=== PATIENT | female | born 1990 | race Caucasian/White ===

== ENCOUNTER 2016-06-22 08:26 | Emergency (ER) | payer MEDICAID, OTHER ==
[~2016-06-22] VITALS: Wt 78.5 kg
[~2016-06-22 08:26] MED LIST: ACET500C5 PO; CEPH-443 PO
[2016-06-22 10:10] LABS: ADD UMIC NO; URINE BILIRUBIN (Dip) NEGATIVE (NEGATIVE); URINE BLOOD (Dip) NEGATIVE (NEGATIVE); URINE COLOR LT. YELLOW (YELLOW); URINE GLUCOSE (Dip) NEGATIVE (NEGATIVE); URINE KETONES (Dip) NEGATIVE (NEGATIVE); URINE LEUKOCYTE ESTERASE (Dip) NEGATIVE (NEGATIVE); URINE NITRITE (Dip) NEGATIVE (NEGATIVE); URINE TOTAL PROTEIN (Dip) NEGATIVE (NEGATIVE); URINE UROBILINOGEN (Dip) 0.2 E.U./dL (0.1-1.0)
--- NOTE | 2016-06-22 11:01 | RADRPT ---
PROCEDURE: CT brain without contrast CLINICAL INDICATION: Headaches TECHNIQUE: CT of the brain without contrast was performed on a multidetector CT scanner, with multi planar reformats. One or more of the following dose reduction techniques were used: Automated expos ure control, adjustment in mA and / or kV according to patient size, use of iterative reconstructive technique. CTDIvol = 39 mGy; DLP = 555 mGy-cm. COMPARISON: None available FINDINGS: No acute intracranial hemorrhage is identified. No extra-axial fluid collection is seen. There is no mass effect. No midline shift is identified. Ventricles and sulci are within normal limits for size and configuration. The density of the brain is within normal limits. Mijares-white differentiation is preserved. Osseous structures are unremarkable. Mastoid air cells and imaged paranasal sinuses grossly clear. IMPRESSION: Unremarkable noncontrast CT of the brain. RPTAT: VV .Juan Mohamud MD, Date Time Electronically viewed and signed by .Juan Mohamud MD, MD on 06/22/2016 11:00 .O/
[2016-06-22] MEDS ORDERED: KETOROLAC 60 MG INJ IM STA (11:37)
[2016-06-22] MEDS ORDERED: IBUP-1542 PO (11:39)
[2016-06-22 12:08] VITALS: BP 120/75; PULSE 70; RESP 18
--- NOTE | 2016-06-22 13:30 | ERD ---
ER Documentation Chief Complaint Date/Time DATE: 06/22/16 TIME: 13:21 Chief Complaint non traumatic headache for the past week. noneuro def. no fever or cough HPI 25-year-old female with no significant past medical history presents to the ED complaining of posterior neck and headache that started constantly since 1 month ago. Reports that it was a gradual onset. States that the headache is worse when she has sexual intercourse. States that whenever she has an orgasm, it feels like a sharp pain that is a 10 out of 10. States that she has pain predominantly in the right side of her head as well as left pressure around her eyes. States that she is followed up with her primary care physician and has taken every drue-non-vsbowhi medication and has not alleviated her symptoms. Patient was sent here to the ED to for further evaluation with a CT of the brain without contrast. Patient also states that she has lumps in her vaginal canal that she has noticed she was showering and is currently taking metronidazole. She states that she is unsure what the doctor prescribed the medication for. Denies any vaginal discharge, vaginal pruritus, or vaginal bleeding. Denies any abdominal pain, nausea, vomiting, weakness, dizziness, numbness or tingling, chest pain, shortness of breath, lacrimation, rhinorrhea. ROS All systems reviewed and are negative except as per history of present illness. Medications Home Meds Active Scripts Ibuprofen* (Motrin*) 600 Mg Tab, 600 MG PO Q6, #30 TAB Prov:SALLIE CATALAN PA-C 06/22/16 Cephalexin* (Keflex*) 500 Mg Capsule, 500 MG PO QID for 7 Days, CAP Prov:DEVANTE BUTTERFIELD NP 02/18/16 Acetaminophen* (Tylophen*) 500 Mg Capsule, 1 CAP PO Q6H Y for PAIN AND OR ELEVATED TEMP, #20 CAP Prov:DEVANTE BUTTERFIELD NP 02/18/16 Reported Medications [none] Unknown Strength No Conflict Check 02/17/16 Allergies Allergies: Coded Allergies: No Known Allergy (Unverified , 06/22/16) PMhx/Soc Medical and Surgical Hx: pt denies Medical Hx, pt denies Surgical Hx History of Surgery: No Anesthesia Reaction: No Hx Neurological Disorder: No Hx Respiratory Disorders: No Hx Cardiac Disorders: No Hx Psychiatric Problems: No Hx Miscellaneous Medical Probl: No Hx Alcohol Use: No Hx Substance Use: No Hx Tobacco Use: No Smoking Status: Never smoker Physical Exam Vitals Vital Signs Date Time Temp Pulse Resp B/P Pulse Ox O2 Delivery O2 Flow Rate FiO2 06/22/16 12:08 70 18 120/75 99 Room Air 06/22/16 08:29 98.5 70 20 112/70 100 Physical Exam Const: Lng-ugu-fibxbcnux, well-nourished. In no acute distress. Head: Atraumatic, normocephalic Eyes: Normal Conjunctiva without injection. No purulent discharge. PERRLA. EOMI ENT: Normal external ear. Ear canal without erythema. Tympanic membrane pearly mijares without effusion or bulging. Nasal canal clear with normal turbinates. Moist oropharynx without tonsillar exudates. Non-erythematous pharynx. Uvula midline. No drooling. No trismus. Neck: No cervical midline tenderness. Full range of motion. No meningismus. No cervical lymphadenopathy. No JVD. Resp: Clear to auscultation bilaterally. No wheezing, rhonchi, rales, or crackles. No accessory muscle use. No retractions. Cardio: Regular rate and rhythm. No murmurs, rubs or gallops. Abd: Soft, non tender, non distended. Normal bowel sounds. No palpable masses. No rebound tenderness. No guarding. Negative McBurney's Point. Negative Tsang's Sign. Skin: Normal skin turgor. No petechiae or rashes Back: No midline tenderness. No CVA tenderness. Ext: No cyanosis, or edema. Distal pulses intact bilaterally. Neur: Awake and alert. Normal gait. Normal coordination. Cranial Nerves II- VII intact. Normal finger to nose. Muscle strength 5/5. Sensation intact. Psych: Normal Mood and Affect Results 24 hrs Laboratory Tests Test 06/22/16 09:50 Urine Bilirubin NEGATIVE Urine Clarity CLEAR Urine Color LT. YELLOW Urine Glucose NEGATIVE% Urine Hemoglobin NEGATIVE Urine Ketones NEGATIVE Urine Leukocyte Esterase NEGATIVE Urine Nitrite NEGATIVE Urine Specific [place] 1.010 Urine Total Protein NEGATIVE Urine Urobilinogen 0.2 E.U./dL Urine pH 7.0 Current Medications Medications (Trade) Dose Ordered Sig/Al Route PRN Reason Start Time Stop Time Status Last Admin Dose Admin Ketorolac Tromethamine (Toradol) 60 mg ONCE STAT IM 06/22/16 11:37 06/22/16 11:39 DC 06/22/16 11:43 Procedures/MDM This is a 25-year-old female with no significant past medical history presents the ED complaining of a headache as well as having a bump in her vaginal canal. States that it is slightly painful but denies any pruritus. Patient is afebrile and nontoxic-appearing. Patient gave consent to do a pelvic exam. The risks of radiation was discussed with the patient at this time of the CT of the brain without contrast was ordered, she agreed that she still wanted to get the CT at this time. Pelvic Exam: Outside Cutter Hand present Abdomen: [Nontender] External Genitalia: [Normal Skin] Speculum: [Normal vaginal mucosa, normal cervical discharge] Bimanual: [No adnexal masses or tenderness, No CMT] PROCEDURE: CT brain without contrast CLINICAL INDICATION: Headaches TECHNIQUE: CT of the brain without contrast was performed on a multidetector CT scanner, with multiplanar reformats. One or more of the following dose reduction techniques were used: Automated exposure control, adjustment in mA and / or kV according to patient size, use of iterative reconstructive technique. CTDIvol = 39 mGy; DLP = 555 mGy-cm. COMPARISON: None available FINDINGS: No acute intracranial hemorrhage is identified. No extra-axial fluid collection is seen. There is no mass effect. No midline shift is identified. Ventricles and sulci are within normal limits for size and configuration. The density of the brain is within normal limits. Mijares-white differentiation is preserved. Osseous structures are unremarkable. Mastoid air cells and imaged paranasal sinuses grossly clear. IMPRESSION: Unremarkable noncontrast CT of the brain. Patient symptoms could likely be due to post choroidal headaches versus tension headaches. Patient's pain is improved after Toradol here in the ED. Low suspicion for migraines, cluster headaches, acute myocardial infarction, pneumothorax, pneumonia, cardiac tamponade, pulmonary embolism, pleural effusion , AAA, aortic dissection, Boerhaave's syndrome, cardiac dysrhythmias,meningitis , intracranial bleed, seizure, stroke, TIA or other emergent conditions. Urinalysis is negative for any leukocyte esterase, hematuria, nitrite. Negative noted. Pelvic exam was within normal limits. No lumps or bumps noted. Low suspicion for symptomatic anemia, ectopic , sepsis, PID, appendicitis, ovarian torsion, tubo-ovarian abscess, surgical abdomen, or other emergent conditions. Patient was educated that there is a risk for threatened . Patient to follow up with [facility] in 2 days for further evaluation and treatment. Patient is to return sooner to the ED for any worsening symptoms. Patient's questions were answered. Patient understood and agreed with discharge plan. Discharge medications: Ibuprofen Follow up with primary care physician in 1-2 days. Instructed patient to return to the ED sooner for any worsening symptoms. Patient's questions were answered. Patient understood and agreed with discharge plan. Patient discharged stable. Departure Diagnosis: Primary Impression: Headache Headache type: unspecified Headache chronicity pattern: unspecified pattern Intractability: not intractable Qualified Code: R51 - Nonintractable headache, unspecified chronicity pattern, unspecified headache type Additional Impression: Vaginal discomfort Condition: Stable Patient Instructions: Self-Care for Headaches, Headache, Unspecified Referrals: [facility] YOU HAVE RECEIVED A MEDICAL SCREENING EXAM AND THE RESULTS INDICATE THAT YOU DO NOT HAVE A CONDITION THAT REQUIRES URGENT TREATMENT IN THE EMERGENCY DEPARTMENT. FURTHER EVALUATION AND TREATMENT OF YOUR CONDITION CAN WAIT UNTIL YOU ARE SEEN IN YOUR DOCTORS OFFICE WITHIN THE NEXT 1-2 DAYS. IT IS YOUR RESPONSIBILITY TO MAKE AN APPOINTMENT FOR FOLOW-UP CARE. IF YOU HAVE A PRIMARY DOCTOR --you should call your primary doctor and schedule an appointment IF YOU DO NOT HAVE A PRIMARY DOCTOR YOU CAN CALL OUR PHYSICIAN REFERRAL HOTLINE AT IF YOU CAN NOT AFFORD TO SEE A PHYSICIAN YOU CAN CHOSE FROM THE FOLLOWING [facility] [address] [facility]. [facility] [address] [facility]. [facility] [address] [facility]. [facility] [address] [facility]. [facility] [address] [facility]. [facility]. [address] [facility] YOU HAVE RECEIVED A MEDICAL SCREENING EXAM AND THE RESULTS INDICATE THAT YOU DO NOT HAVE A CONDITION THAT REQUIRES URGENT TREATMENT IN THE EMERGENCY DEPARTMENT. FURTHER EVALUATION AND TREATMENT OF YOUR CONDITION CAN WAIT UNTIL YOU ARE SEEN IN YOUR DOCTORS OFFICE WITHIN THE NEXT 1-2 DAYS. IT IS YOUR RESPONSIBILITY TO MAKE AN APPOINTMENT FOR FOLOW-UP CARE. IF YOU HAVE A PRIMARY DOCTOR --you should call your primary doctor and schedule and appointment IF YOU DO NOT HAVE A PRIMARY DOCTOR YOU CAN CALL OUR PHYSICIAN REFERRAL HOTLINE AT . IF YOU CAN NOT AFFORD TO SEE A PHYSICIAN YOU CAN CHOSE FROM THE FOLLOWING [facility] INSTITUTIONS: [facility] [address] [place] [address] [facility] [address] [place] [address] [facility] [address] [place] [address] [facility] URGENT CARE/SPECIALTIES [facility] [place] [address] [facility] [address] [place] [address] OFFICE FAX , [facility] [address] [place] [address] [address] [address] [place] [address] [address] [facility] [address] [facility] [address] [address] [place] [address] [facility] [address] [place] [address] [address] [facility] [address] [address] [address] [facility] [address] [address] [address] [facility] [address], [facility] [address] [address] [address] [place] [address] [facility] Hours: 8:00 am - 5:00 pm Additional Instructions: FOLLOW UP WITH YOUR PRIMARY CARE PHYSICIAN TOMORROW for a referral to [facility] and for your headache.Return to this facility if you are not improving as expected. SALLIE CATALAN PA-C Jun 22, 2016 13:30
== END 2016-06-22 12:09 | disposition home or self-care (01) ==
LOC: FTE 08:26
DX: R51 Headache (principal); N89.8 Other specified noninflammatory disorders of vagina
CPT/HCPCS: 70450; 81003; 87591; 96372; J1885; Z7502

== ENCOUNTER 2017-01-16 10:35 | Emergency (ER) | payer OTHER ==
[~2017-01-16] VITALS: Ht 152.4 cm; Wt 81.0 kg
[~2017-01-16 10:35] MED LIST changes: +IBUP-1542 PO
[2017-01-16 10:38] VITALS: Ht 152.4 cm; Wt 81.0 kg
--- NOTE | 2017-01-16 11:53 | ERD ---
ER Documentation Chief Complaint Date/Time DATE: 01/16/17 TIME: 11:51 Chief Complaint pelvic pain x 2 mos HPI She is a 26-year-old female who is , presents to the ED with bilateral pelvic pain. States that the pain comes and goes sometimes on the right and sometimes on the left. Denies fever or chills. Denies abdominal pain, nausea, vomiting or diarrhea. Patient states that her last normal menstrual period was November 202016. She states that she has normal menstrual cycles every month. She has done multiple tests at home and is unsure if she is however the test have been negative. Denies vaginal bleeding , dysuria urgency. No other complaints. ROS All systems reviewed and are negative except as per history of present illness. Medications Home Meds Active Scripts Ibuprofen* (Motrin*) 600 Mg Tab, 600 MG PO Q6, #30 TAB Prov:KALI PARKER PA-C 01/16/17 Ibuprofen* (Motrin*) 600 Mg Tab, 600 MG PO Q6, #30 TAB Prov:SALLIE CATALAN PA-C 06/22/16 Cephalexin* (Keflex*) 500 Mg Capsule, 500 MG PO QID for 7 Days, CAP Prov:DEVANTE BUTTERFIELD NP 02/18/16 Acetaminophen* (Tylophen*) 500 Mg Capsule, 1 CAP PO Q6H Y for PAIN AND OR ELEVATED TEMP, #20 CAP Prov:DEVANTE BUTTERFIELD NP 02/18/16 Reported Medications [none] Unknown Strength No Conflict Check 02/17/16 Allergies Allergies: Coded Allergies: No Known Allergy (Unverified , 06/22/16) PMhx/Soc Medical and Surgical Hx: pt denies Medical Hx, pt denies Surgical Hx History of Surgery: No Anesthesia Reaction: No Hx Neurological Disorder: No Hx Respiratory Disorders: No Hx Cardiac Disorders: No Hx Psychiatric Problems: No Hx Miscellaneous Medical Probl: No Hx Alcohol Use: No Hx Substance Use: No Hx Tobacco Use: No Smoking Status: Never smoker FmHx Family History: No coronary disease, No diabetes, No other Physical Exam Vitals Vital Signs Date Time Temp Pulse Resp B/P Pulse Ox O2 Delivery O2 Flow Rate FiO2 01/16/17 10:38 98.5 90 18 112/66 99 Physical Exam GENERAL: Well-developed, well-nourished female. Appears in no acute distress. HEAD: Normocephalic, atraumatic. EYES: Pupils are equally reactive bilaterally. EOMs grossly intact. No conjunctival erythema. ENT: Moist mucous membranes. No uvula deviation. No kissing tonsils. No exudates. NECK: Supple. No lymphadenopathy or thyromegaly. No meningismus. negative kernig. negative brudinski. LUNG: Clear to auscultation bilaterally. No rhonchi, wheezing, rales or coarse breath sounds. HEART: Regular rate and rhythm. No murmurs, rubs or gallops. ABDOMEN: No scars, ecchymosis or rashes noted. Soft, nontender, and nondistended. Positive bowel sounds in all four quadrants. No rebound tenderness , no guarding. (-) McBurneys point tenderness. No CVA tenderness. slight right and left sided pelvic pain. BACK: No midline tenderness. Extremities: Equal pulses bilaterally. No peripheral clubbing, cyanosis or edema. No unilateral leg swelling. NEUROLOGIC: Alert and oriented. Moving all four extremities. 5/5 strength in all extremities. Normal speech. Steady gait. SKIN: Normal color. Warm and dry. No rashes or lesions. Capillary refill < 2 seconds Results 24 hrs Laboratory Tests Test 01/16/17 11:13 01/16/17 11:33 Urine Test NEGATIVE Urine Color STRAW Urine Clarity CLEAR Urine pH 7.0 Urine Specific [place] 1.006 Urine Ketones NEGATIVEmg/dL Urine Nitrite NEGATIVEmg/dL Urine Bilirubin NEGATIVEmg/dL Urine Urobilinogen NEGATIVEmg/dL Urine Leukocyte Esterase NEGATIVELeu/ul Urine Hemoglobin NEGATIVEmg/dL Urine Glucose NEGATIVEmg/dL Urine Total Protein NEGATIVEmg/dl Procedures/MDM ER COURSE: I kept the patient and/or family informed of laboratory and diagnostic imaging results throughout the emergency room course. MEDICAL DECISION MAKING: This is a 26-year-old female who presents with pelvic pain on and off 2 months. Vital signs were reviewed. Patient is afebrile. Patient is not hypoxic. Is not toxic or ill-appearing. Ultrasound as of by radiologist is unremarkable. Negative test and urinalysis negative for nitrites, leukocytes or hematuria. Patient has pelvic pain of unknown etiology. Patient to follow-up with sock drier. Low suspicion for ovarian torsion, PID, tuboovarian abscess, ectopic , bowel obstruction, pyelonephritis, UTI, appendicitis , cervicitis, septic , molar , HELLP syndrome, preeclampsia, eclampsia, placenta previa, placenta abruptia. DISCHARGE: At this time, patient is stable for discharge and outpatient management with no new complaints during the ER course. Patient was sent home with ibuprofen, copy of imaging and laboratory studies and to follow-up with brennen/electric organ assembler. Patient will be discharged home with instructions to recheck for new or worsening symptoms such as fever, nausea, weakness, LOC and to follow up with primary care in the next 1-2 days. Patient was advised to return to the ER for any new or worsening symptoms. Plan was discussed and patient and/or family understands and agrees. Home instructions were given. Departure Diagnosis: Primary Impression: Pelvic pain Condition: Stable KALI PARKER PA-C Jan 16, 2017 11:53
[2017-01-16 12:09] LABS: ADD UMIC NO; UR ASCORBIC ACID NEGATIVE (NEGATIVE); UR BILIRUBIN (Dip) NEGATIVE (NEGATIVE); UR BLOOD (Dip) NEGATIVE (NEGATIVE); UR CLARITY CLEAR (CLEAR); UR COLOR STRAW (YELLOW); UR GLUCOSE (Dip) NEGATIVE (NEGATIVE); UR KETONES (Dip) NEGATIVE (NEGATIVE); UR LEUKOCYTE ESTERASE (Dip) NEGATIVE Leu/ul (NEGATIVE); UR NITRITE (Dip) NEGATIVE (NEGATIVE); UR SPECIFIC GRAVITY (Dip) 1.006 (1.003-1.030); UR TOTAL PROTEIN (Dip) NEGATIVE (NEGATIVE); UR UROBILINOGEN (Dip) NEGATIVE (NEGATIVE)
--- NOTE | 2017-01-16 12:17 | RADRPT ---
PROCEDURE: US Pelvis. CLINICAL INDICATION: Pelvic pain TECHNIQUE: Multiple sonographic images of the pelvis were obtained utilizing a transabdominal and endovaginal technique. The images were reviewed on a PACS workstation. COMPARISON: None available FINDINGS: Uterus: Normal in size, contour and echogenicity with no evidence for myometrial masses. Size is est imated at 8.5 x 3.4 x 5.9 cm. Cervix: No abnormalities of significance are seen. Endometrium: Normal in thickness; 7.9 mm. Right ovary / adnexa: Normal in size estimated at 3.1 x 2.4 x 1.8 cm. No evidence for masses, norm al blood flow on Doppler interrogation. Left ovary/adnexa: Normal in size estimated at 2.8 x 1.6 x 1.8 cm. No evidence for solid masses, no rmal blood flow on Doppler interrogation. Cul-de-sac: No evidence of free fluid. RPTAT:HSM IMPRESSION: Unremarkable pelvic ultrasound. .Adal Bunn MD, MD Date Time Electronically viewed and signed by .Adal Bunn MD, on 01/16/2017 12:16 .M/
[2017-01-16] MEDS ORDERED: IBUP-1542 PO (12:32)
== END 2017-01-16 12:42 | disposition home or self-care (01) ==
LOC: FTE 10:35
DX: R10.2 Pelvic and perineal pain (principal)
CPT/HCPCS: 76830; 76856; 81003; 84703; Z7502

== ENCOUNTER 2018-07-01 13:04 | Inpatient (IN) | payer OTHER ==
[~2018-07-01] VITALS: Ht 162.6 cm; Wt 91.4 kg
[2018-07-01 13:12] VITALS: Ht 162.6 cm; Wt 91.4 kg
[2018-07-01] MEDS ORDERED: PREN-93 PO (13:17)
--- NOTE | 2018-07-01 15:10 | HP ---
Date/Time of Note Date/Time of Note DATE: 07/01/18 TIME: 15:06 OB - History Hx of Present Free Text/Dictation Patient is a 27-year-old 7 para 3 at 40 weeks and 2 days of gestation with estimated date of delivery June 29, 2018 Patient presents with chief complaint of decreased movement She denies any vaginal bleeding or leaking fluid or any uterine contractions GBS status is negative Estimated Due Date: Jun 29, 2018 : 7 Para: 3 Care: Good Care Past Family/Social History * Past Medical, Surgical, Family and Obstetric Histories reviewed from chart. OB Admission Exam Physical Exam HEENT: WNL Heart: Rhythm Normal Lungs: Clear, Equal Abdomen: WNL Extremities: Normal Reflexes: Normal Cervical Dilatation: None Effacement: 0% Station: -3 Membranes: Intact Heart Rate: 140's Accelerations: Accelerations Present Decelerations: No Decelerations Varibility: Moderate Contractions on Admission: None Last 72 hourBlood Glucose PROCEDURE: US biophysical profile. CLINICAL INDICATION: DFM. well-being. TECHNIQUE: Multiple sonographic images of the uterus were obtained. The images were reviewed on a PACS workstation. COMPARISON: No prior studies are available for comparison. FINDINGS: There is a single live intrauterine gestation. heart rate is 131 beats per minute. The position is cephalic. The placenta is posterior, grade 2. The ES is 12 cm. Breathing Movement: 2 Gross Body Movement: 2 Tone: 2 Qualitative Amniotic Fluid Volume: 2 TOTAL: 8 IMPRESSION: 1. Single viable intrauterine gestation. 2. Biophysical profile = 8/8. 3. ES = 12 cm. RPTAT: HFN .Tom Schumacher MD, MD Date Time Electronically viewed and signed by .Tom Schumacher MD, MD on 07/01/2018 14:13 .N/ CC: KRISTIE SCHOFIELD MD [phone] PROCEDURE: US OB. CLINICAL INDICATION: Size and dates TECHNIQUE: Multiple sonographic images of the pelvis and gravid uterus were obtained. The images were reviewed on a PACS workstation. COMPARISON: No prior studies are available for comparison. FINDINGS: Gestation: Single live intrauterine gestation. Cardiac activity: 173 beats per minute. Presentation: Vertex. Placenta: Location: Posterior maternal right Appearance: No previa or abruption. Measurements: BPD = 9.3 cm, 37 weeks and 6 days HC = 33.6 cm, 38 weeks and 3 days AC = 34.2 cm, 38 weeks and 0 days FL = 7.7 cm, 39 weeks and 1 day Gestational Age: AUA estimated gestational age: 38 weeks 3 days LMP estimated gestational age: 40 weeks 2 days AUA estimated date of delivery: 07/12/18 The EFW = 3460 g, 32.7%ile based on LMP age. RPTAT: AA IMPRESSION: Single live intrauterine gestation of 38 weeks 3 days by ultrasound criteria. .Bryant Devries MD, MD Date Time Electronically viewed and signed by .Bryant Devries MD, MD on 07/01/2018 16:50 .S/ CC: KRISTIE SCHOFIELD MD [phone] OB Assessment/Plan Reason for admission: induction of labor (Postdates) Plan: Induction Induction Method: per Misoprostol Protocol Other plan: Admit to labor and delivery Induction per protocol Anesthesia as needed KRISTIE SCHOFIELD MD Jul 01, 2018 15:10
--- NOTE | 2018-07-01 15:44 | TRIAGE ---
OB Triage Datetime Report Generated by CPN: 07/01/2018 15:44 Datetime: 07/01/2018 15:00 Stage of : OB Triage Maternal Assessment Level of Consciousness: Fully Conscious DTR's/Clonus: DTRs 1+ Headache: Denies Breath Sounds, Left: Clear and Equal Breath Sounds, Right: Clear and Equal Nausea/Vomiting: Denies RUQ Epigastric Pain: Denies Labor Evaluation Frequency: IRRE Monitor Mode: External Duration (sec)2399: 60-80 Quality: Mild Pattern: Normal: <= 5 Contractions in 10 Minutes Resting Tone [place]: Relaxed Heart Rate FHR Baseline Rate: 130 Monitor Mode: External US Variability: Moderate 6-25 bpm Accelerations: 15X15 Decelerations: None Category: Category I Pain Assessment Pain Scale: 0 Pain Presence: None/Denies Pain Type: N/A Pain Goal: 3 Membrane Status: Intact Datetime: 07/01/2018 14:30 Stage of : OB Triage Vaginal Exam Dilatation (cms): 0.0 Effacement (%): 0 Station: -3 Exam By: RRAMIREZ,RN Membrane Status: Intact Datetime: 07/01/2018 14:00 Stage of : OB Triage Maternal Assessment Level of Consciousness: Fully Conscious DTR's/Clonus: DTRs 1+ Headache: Denies Breath Sounds, Left: Clear and Equal Breath Sounds, Right: Clear and Equal Nausea/Vomiting: Denies RUQ Epigastric Pain: Denies Labor Evaluation Frequency: IRRE Monitor Mode: External Duration (sec)2399: 60-80 Quality: Mild Pattern: Normal: <= 5 Contractions in 10 Minutes Resting Tone [place]: Relaxed Heart Rate FHR Baseline Rate: 130 Monitor Mode: External US Variability: Moderate 6-25 bpm Accelerations: 15X15 Decelerations: None Category: Category I Pain Assessment Pain Scale: 0 Pain Presence: None/Denies Pain Type: N/A Pain Goal: 3 Membrane Status: Intact Datetime: 07/01/2018 13:46 Stage of : OB Triage Datetime: 07/01/2018 13:36 Stage of : OB Triage Maternal Assessment Level of Consciousness: Fully Conscious DTR's/Clonus: DTRs 1+ Headache: Denies Blurred Vision: No Respiratory Effort: Unlabored Breath Sounds, Left: Clear and Equal Breath Sounds, Right: Clear and Equal Nausea/Vomiting: Denies RUQ Epigastric Pain: Denies Facial Edema: None Labor Evaluation Frequency: X2 Duration (sec)2399: 60 Quality: Mild Pattern: Normal: <= 5 Contractions in 10 Minutes Resting Tone [place]: Relaxed Heart Rate FHR Baseline Rate: 130 Monitor Mode: External US Variability: Moderate 6-25 bpm Accelerations: 15X15 Decelerations: None Category: Category I Pain Assessment Pain Scale: 0 Pain Presence: None/Denies Pain Type: N/A Pain Goal: 3 Membrane Status: Intact Datetime: 07/01/2018 13:23 EGA: 40.3 Datetime: 07/01/2018 13:10 Assessment Type: Triage Maternal Assessment Level of Consciousness: Fully Conscious DTR's/Clonus: DTRs 2+; No Clonus Headache: Denies Blurred Vision: No Respiratory Effort: Unlabored; Regular Rhythm; Equal Expansion Breath Sounds, Left: Clear and Equal Breath Sounds, Right: Clear and Equal Nausea/Vomiting: Denies RUQ Epigastric Pain: Denies Lower Extremities Edema: None Degree: None Upper Extremities Edema: None Degree: None Facial Edema: None Fall Risk Assessment History of Falling: (0) No Secondary Diagnosis: (0) No Ambulatory Aid: (0) Bedrest/Nurse Assist IV Therapy: (0) No Gait: (0) Normal/Bedrest/Immobile Mental Status: (0) Oriented to Own Ability Fall Score: 0 Fall Risk Score Definition: No Risk: No action required Datetime: 07/01/2018 12:50 Time of Arrival: 07/01/2018 12:50 Arrived By: Ambulatory Arrived From: Home Chief Complaint: PT CAME IN FOR POST DTAES AND DFM Movement: Decreased Contractions: Denies/Absent Rupture of Membranes: Denies Vaginal Discharge: Denies Recent Sexual Intercouse: Denies Abdominal Trauma: Not Applicable Additional Patient Complaints: NONE Time Provider Notified: 07/01/2018 15:11 Provider Notified: CHANDU Initial Plan: MONITOR, VE AND BPP
[2018-07-01] MEDS ORDERED: OXYTOCIN 30 UNITS/LR 500 ML IV PRN (16:00)
[2018-07-01] MEDS ORDERED: MISOPROSTOL 50 MCG CAPSULE VAG ONE (16:00)
[2018-07-01] MEDS ORDERED: LIDOCAINE 1% (MPF) 30 ML INJ INJ PRN (16:00)
[2018-07-01] MEDS ORDERED: OXYTOCIN 30 UNITS/LR 500 ML IV SCH ×3 (16:00)
[2018-07-01] MEDS ORDERED: BUTORPHANOL 2 MG INJ IV PRN (16:00)
[2018-07-01] MEDS ORDERED: METHYLERGONOVINE 0.2 MG INJ IM PRN (16:00)
[2018-07-01] MEDS ORDERED: MISOPROSTOL 200 MCG TAB PR PRN (16:00)
[2018-07-01] MEDS ORDERED: CARBOPROST 250 MCG INJ IM PRN (16:00)
[2018-07-01] MEDS: LACTATED RINGER'S 1,000 ML IV SCH ×2 (16:08→20:42)
[2018-07-01] MEDS: MISOPROSTOL 50 MCG CAPSULE PO SCH ×2 (17:06→21:00)
[2018-07-01] MEDS ORDERED: FENTAnyl 2MCG/ML-ROPIV 0.2% 100 ML ONE (20:38)
--- NOTE | 2018-07-01 20:38 | PREAC ---
Date/Time of Note Date/Time of Note DATE: 07/01/18 TIME: 20:37 Anesthesia Eval and Record Evaluation Time Pre-Procedure Interview DATE: 07/01/18 TIME: 20:37 Age 27 Sex female NPO: 8 hrs Preoperative diagnosis iup at postdates Planned procedure labor epidural Past Medical History Past Medical History: Includes GI: Obesity Surgery & Anesthesia Issues No known issue Meds Anticoagulation: No Beta Andrés within 24 hr: No Reason Beta Andrés not given: Pt. not on B-Andrés Reported Medications Vit No.124/Iron/FA ( Vitamin Tablet) 1 Each Tablet, 1 EACH PO, TAB 07/01/18 Current Medications Lactated Ringer's 1,000 ml @ 125 mls/hr Q8H IV Last administered on 07/01/18at 16:08; Admin Dose 125 MLS/HR; Start 07/01/18 at 15:35 Butorphanol Tartrate (Stadol) 2 mg Q2H PRN IV .PAIN; Start 07/01/18 at 16:00 Lidocaine (Xylocaine 1% (Mpf)) 30 ml ONCE PRN INJ .EPISIOTOMY; Start 07/01/18 at 16:00 Oxytocin/Lactated Ringer's 500 ml @ 500 mls/hr ONCE POST IV ; Start 07/01/18 at 16:00 Oxytocin/Lactated Ringer's 500 ml @ 125 mls/hr POST IV ; Start 07/01/18 at 16:00 Oxytocin/Lactated Ringer's 500 ml @ 0 mls/hr ONCE PRN IV .VAGINAL BLEEDING; Start 07/01/18 at 16:00 Methylergonovine Maleate (Methergine) 0.2 mg ONCE PRN IM .VAGINAL BLEEDING; Start 07/01/18 at 16:00 Carboprost Tromethamine (Hemabate) 250 mcg ONCE PRN IM .VAGINAL BLEEDING; Start 07/01/18 at 16:00 Misoprostol (Cytotec) 1,000 mcg ONCE PRN MN .VAGINAL BLEEDING; Start 07/01/18 at 16:00 Oxytocin/Lactated Ringer's 500 ml @ 0 mls/hr FOR INDUCTION IV ; Start 07/01/18 at 16:00 Misoprostol (Cytotec 50 Mcg Capsule) 50 mcg Q4 PO Last administered on 07/01/18at 17:06; Admin Dose 50 MCG; Start 07/01/18 at 17:00 Meds reviewed: Yes Allergies Coded Allergies: No Known Allergy (Unverified , 07/01/18) Allergies Reviewed: Yes Labs/Studies Labs Reviewed: Reviewed by anesthesiologist Result Diagram: 07/01/18 1608 Laboratory Tests 07/01/18 16:08 Blood Bank Test 07/01/18 16:08 Antibody Screen NEGATIVE Blood Type O POSITIVE Rh Immune Globulin Candidate NO test: Positive Pre-procedure Exam Airway: Adequate mouth opening, Adequate thyromental dist Mallampati: Mallampati II Teeth: Normal Lung: Normal Heart: Normal ASA Physical Status ASA physical status: 2 Emergency: None Planned Anesthetic Neuraxial: Epidural Planned Pain Management Parenteral pain med Pre-operative Attestations Prior to commencing anesthesia and surgery, the patient was re-evaluated, there was verification of: *The patient's identity *The results of appropriate recent lab work and preoperative vital signs *The above evaluation not changing prior to induction *Anesthetic plan, risk benefits, alternative and complications discussed with patient/family; questions answered; patient/family understands, accepts and wishes to proceed. NANCY MARR Jul 01, 2018 20:38
--- NOTE | 2018-07-01 22:43 | PAC ---
Date/Time of Note Date/Time of Note DATE: 07/01/18 TIME: 22:42 Post-Anesthesia Notes Post-Anesthesia Note Last documented vital signs temp 98.1 bp 111/74 p 76 O2 sat 98% Activity: WNL Respiratory function: WNL Cardiovascular function: WNL Mental status: Baseline Pain reasonably controlled: Yes Hydration appropriate: Yes Nausea/Vomiting absent: Yes NANCY MARR Jul 01, 2018 22:43
[2018-07-01] MEDS ORDERED: DIPHENHYDRAMINE 50 MG INJ IV PRN (23:00)
[2018-07-01] MEDS ORDERED: NALOXONE (0.4 MG/ML) INJ IV PRN (23:00)
[2018-07-01] MEDS ORDERED: ONDANSETRON 4 MG INJ IV PRN (23:00)
[2018-07-01] MEDS ORDERED: FENTAnyl 2MCG/ML-ROPIV 0.2% 100 ML BAG EPI SCH (23:00)
--- NOTE | 2018-07-01 23:36 | LDN ---
Date/Time of Note Date/Time of Note DATE: 07/01/18 TIME: 23:34 Delivery Summary Weeks of Gestation 40+ weeks Meconium: none Episiotomy: No Laceration repair: Vaginal laceration repaired with 3-0 chromic. Anesthesia type: Epidural Estimated blood loss: 150 Sponge & Needle done & correct: Yes All needle counts correct: Yes Any foreign bodies felt in the: No Delivery Information Sex Sex: male Apgars 1 Minute: 9 5 Minute: 9 Suctioning Nose & mouth suctioned at juan: No Delee suction performed: No Umbilical Cord Umbilical cord with: 3 Vessels Cord presentations: nuchal cord Nuchal cord present X: 1 Cord Blood was obtained: Yes Mother & Baby Disposition Disposition Mom & Baby to Maternity; Good: Yes MANNY MALDONADO MD Jul 01, 2018 23:36
[2018-07-02 01:20] VITALS: BP 118/67; PULSE 75; RESP 19
[2018-07-02] MEDS ORDERED: ACETAMINOPHEN 325 MG TAB PO PRN (01:30)
[2018-07-02] MEDS ORDERED: OXYTOCIN 30 UNITS/LR 500 ML IV PRN (01:30)
[2018-07-02] MEDS ORDERED: MISOPROSTOL 200 MCG TAB PR PRN (01:30)
[2018-07-02] MEDS ORDERED: HYDROCODONE/APAP (5/325) TAB PO PRN (01:30)
[2018-07-02] MEDS ORDERED: CARBOPROST 250 MCG INJ IM PRN (01:30)
[2018-07-02] MEDS ORDERED: DIBUCAINE 1% 30 GM OINT TOP PRN (01:30)
[2018-07-02] MEDS ORDERED: BENZOCAINE 20% 56 ML SPRAY TOP PRN (01:30)
[2018-07-02] MEDS ORDERED: METHYLERGONOVINE 0.2 MG INJ IM PRN (01:30)
[2018-07-02 02:20] VITALS: BP 105/50; PULSE 77; RESP 19
[2018-07-02] MEDS: LACTATED RINGER'S 1,000 ML IV* SCH ×2 (04:15→09:25)
[2018-07-02] MEDS: WITCH HAZEL/GLYCERIN PAD PR PRN (04:15)
[2018-07-02 04:30] VITALS: BP 109/56; PULSE 76; RESP 19
[2018-07-02] MEDS: IBUPROFEN 600 MG TAB PO SCH ×3 (05:43→18:00)
[2018-07-02 08:25] VITALS: BP 102/66; PULSE 67; RESP 18
[2018-07-02] MEDS: SENNA/DOCUSATE NA (8.6MG/50MG) TAB PO SCH ×2 (09:55→21:03)
--- NOTE | 2018-07-02 11:18 | QN ---
Documentation Comment PPD#1 is stable afebrile tolerates diet No VB +BM +Voids VS stable Gen AND Abd soft NT ND Genitalia No blood at perineum --->Discharge plan tomorrow JADE GALLO M.D. Jul 02, 2018 11:18
[2018-07-02 16:00] VITALS: BP 108/53; PULSE 76; RESP 18
[2018-07-02 19:55] VITALS: BP 97/50; PULSE 76; RESP 18
[2018-07-03] MEDS: IBUPROFEN 600 MG TAB PO SCH ×3 (00:03→12:04)
[2018-07-03 03:35] VITALS: BP 107/59; PULSE 80; RESP 19
[2018-07-03 07:55] VITALS: BP 109/56; PULSE 73; RESP 18
[2018-07-03] MEDS: WITCH HAZEL/GLYCERIN PAD PR PRN (08:46)
[2018-07-03] MEDS ORDERED: DIPHTH/TET/ACEL PERTUSS (ADULT) 0.5 ML VIAL IM* ONE (09:00)
[2018-07-03] MEDS: SENNA/DOCUSATE NA (8.6MG/50MG) TAB PO SCH (10:19)
--- NOTE | 2018-07-09 11:23 | DELSUM ---
Delivery Summary A-C Datetime Report Generated by CPN: 07/09/2018 11:20 DELIVERY PERSONNEL Disability Liaison Officer: Canuto, Radha MATERNAL INFORMATION Delivery Anesthesia: Epidural Medications in Delivery: LR WITH 30 UNITS OF PITOCIN Delivery QBL (ml): 150 Placenta Cultured: No Maternal Complications: None LABOR SUMMARY EDC: 06/28/2018 00:00 No. Babies in Womb: 1 Attempted: No Labor Anesthesia: Epidural LABOR INFORMATION Reason for Induction: Postterm Onset of Labor: 07/01/2018 20:07 Complete Dilatation: 07/01/2018 23:14 Cervical Ripening Agents: Cytotec @ Oxytocin: N/A Group B Beta Strep: Negative Antibiotics # of Doses: 0 Steroids Given: None Reason Steroids Not Administered: Not Applicable MEMBRANES Membranes Rupture Method: Spontaneous Rupture of Membranes: 07/01/2018 20:07 Length of Rupture (hr): 3.23 Amniotic Fluid Color: Clear Amniotic Fluid Amount: Moderate Amniotic Fluid Odor: None STAGES OF LABOR Stage 1 hr: 3 Stage 1 min: 7 Stage 2 hr: 0 Stage 2 min: 7 Stage 3 hr: 0 Stage 3 min: 4 Total Time in Labor hr: 3 Total Time in Labor min: 18 VAGINAL DELIVERY Episiotomy: None Laceration Extension: First Degree Laceration Type: Vaginal Laceration Repair: Yes Initial Vag Sponge Count: 10 Final Vag Sponge Count: 10 Initial Vag Sharps Count: 1 Final Vag Sharps Count: 2 Sponge Count Correct: Yes Sharps Count Correct: Yes BABY A INFORMATION Delivery Date/Time: 07/01/2018 23:21 Method of Delivery: Vaginal Born in Route : No : N/A Forceps: N/A Vacuum Extraction: N/A Shoulder Dystocia : No SHOULDER DYSTOCIA BABY A Infant Delivery Date/Time: 07/01/2018 23:21 PRESENTATION/POSITION BABY A Presentation: Cephalic Cephalic Presentation: Vertex Vertex Position: Left Occipital Anterior Breech Presentation: N/A PLACENTA INFORMATION BABY A Placenta Delivery Time : 07/01/2018 23:25 Placenta Method of Delivery: Spontaneous Placenta Status: Delivered SCORES BABY A Heart Rate 1 min: >100 bpm Resp Effort 1 min: Good Cry Reflex Irritability 1 min: Cough/Sneeze/Pulls Away Muscle Tone 1 min: Active Motion Color 1 min: Body [place], Extremit Blue Resuscitation Effort 1 min: Tactile Stimulation SCORE 1 MIN: 9 Heart Rate 5 min: >100 bpm Resp Effort 5 min: Good Cry Reflex Irritability 5 min: Cough/Sneeze/Pulls Away Muscle Tone 5 min: Active Motion Color 5 min: Body [place], Extremit Blue Resuscitation Effort 5 min: Tactile Stimulation SCORE 5 MIN: 9 INFANT INFORMATION BABY A Gestational Age at Delivery: 40.3 Gestational Status: Full Term- 39- 40.6 Weeks Outcome : Liveborn Infant Condition : Stable Infant Sex: Male IDENTIFICATION/MEDS BABY A ID Band Number: [id number] ID Band Location: Right Leg; Left Arm Sensor Applied: Yes Sensor Number: [id number] Sensor Location : Cord Clamp Vitamin K Given : Not Given Erythromycin Given: Not Given WEIGHT/LENGTH BABY A Birthweight (gm): 3460 Infant Weight (lb): 7 Weight (oz): 10 Infant Length (in): 19.50 Length (cm): 49.53 CORD INFORMATION BABY A No. Cord Vessels: 3 Nuchal Cord : Around Neck x1, Loose Cord Blood Taken: Yes Suction: Mouth; Nose ASSESSMENT BABY A Infant Complications: None Physical Findings at Delivery: Caput Succedaneum; Molding of the Head Infant Respirations: Appears Normal [employer] Called : No Care By: Liliana MADRID Transferred To: Remains with Mother
== END 2018-07-03 12:50 | disposition home or self-care (01) | DRG 806 ==
LOC: OBT 13:04 → L-D 13:05 → OBT 15:05 → L-D 15:05 → PP1 07-02 01:12
PROVIDERS: ADMIT Obstetrics & Gynecology; ATTEND Obstetrics & Gynecology
PROC: 10E0XZZ Delivery of Products of Conception, External Approach (ICD-10-PCS; principal; 2018-07-01)
PROC: 0UQMXZZ Repair Vulva, External Approach (ICD-10-PCS; 2018-07-01)
DX: O48.0 Post-term pregnancy (principal); O71.4 Obstetric high vaginal laceration alone; Z37.0 Single live birth; Z3A.40 40 weeks gestation of pregnancy; O69.81X0 Labor and delivery complicated by cord around neck, without compression, not applicable or unspecified
CPT/HCPCS: 62319; 76815; 76818; 85025; 85610; 85730; 86592; 86850; 86900; 86901; 87340; 90715; G0463; J2590; J3010; J7120